=== PATIENT | female | born 1995 | race Caucasian/White ===

== ENCOUNTER → 2020-01-27 08:00 | Outpatient (BNVA) | payer MEDICAID, SELFPAY | PROVIDERS: Family Provider Nurse Practitioner Family; PCP Nurse Practitioner Family; Visit Provider Psychiatry & Neurology Psychiatry | DX: F43.10 Post-traumatic stress disorder, unspecified (principal); F34.9 Persistent mood [affective] disorder, unspecified; G47.26 Circadian rhythm sleep disorder, shift work type; D51.9 Vitamin B12 deficiency anemia, unspecified; F12.10 Cannabis abuse, uncomplicated; F39 Unspecified mood [affective] disorder; F33.9 Major depressive disorder, recurrent, unspecified; F60.9 Personality disorder, unspecified; F31.81 Bipolar II disorder | CPT/HCPCS: 99205 ==

== ENCOUNTER 2020-02-03 08:33 | Outpatient (CLI) | payer MEDICAID, SELFPAY ==
[2020-02-03 09:16] LABS: Basophils % 0.3 %; Eosinophils # 0.4 10^3/uL (0.0-0.8); Eosinophils % 3.1 %; Hematocrit 37.7 % (37.0-47.0); Lymphocytes # 3.6 10^3/uL (0.8-4.8); Lymphocytes % 31.8 %; Mean Corpuscular HGB Conc 31.8 g/dL (30.0-36.0); Mean Corpuscular Hemoglobin 27.8 pg (28.0-34.0); Mean Corpuscular Volume 87.5 fL (81-99); Mean Platelet Volume 10.2 fL (7.4-10.4); Monocytes # 1.1 10^3/uL (0.2-0.9); Neutrophils # 6.3 10^3/uL (1.8-7.7); Neutrophils % 54.5 %; Nucleated Red Blood Cells % 0 %; Platelet Count 396 10^3/cmm (130-400); Red Blood Count 4.31 10^6/uL (4.1-5.3); Red Cell Distribution Width 13.3 % (12.1-15.1); White Blood Count 11.5 10^3/uL (4.0-10.0)
[2020-02-03 09:23] LABS: Amphetamines Screen Urine Negative (Negative); Barbiturates Screen Urine Negative (Negative); Benzodiazepines Screen Urine Negative (Negative); Cocaine Screen Urine Negative (Negative); Opiate Screen Urine Negative (Negative); PCP Screen Urine Negative (Negative); THC Screen Urine Positive (Negative)
[2020-02-03 09:48] LABS: Folate Level 4.6 ng/mL (4.8-37.3)
[2020-02-03 09:50] LABS: Alanine Aminotransferase 37 U/L (0-33); Albumin Level 4.5 g/dL (3.5-5.2); Alkaline Phosphatase 93 IU/L (35-105); Anion Gap 13.9 (5-19); Aspartate Amino Transferase 23 U/L (0-32); Blood Urea Nitrogen 20 mg/dL (6-20); Calcium 10.1 mg/dL (8.5-10.5); Carbon Dioxide 24 mmol/L (22-29); Chloride 102 mmol/L (98-107); Chol HDL Ratio 4.21 mg/dL (0.0-4.40); Cholesterol 181 mg/dL (0-200); Glucose 93 mg/dL (65-115); HDL Cholesterol 43 mg/dL (60-100); LDL Cholesterol Calculated 120 mg/dL (50-129); LDL HDL Ratio 2.79 RATIO (0.00-3.22); Osmolality Calculated 278 mOsm/kg (285-295); Potassium 3.9 mmol/L (3.5-5.1); Sodium 136 mmol/L (136-145); Thyroid Stimulating Hormone 1.42 uIU/mL (0.27-4.20); Total Bilirubin 0.2 mg/dL (0.15-1.2); Total Protein 8.5 g/dL (6.6-8.7); Triglycerides 91 mg/dL (0-150); Vitamin B12 425 pg/mL (232-1245)
[2020-02-03 10:33] LABS: Free T4 Free Thyroxine 1.13 ng/dL (0.82-1.77); T3 Free 3.8 PG/ML (2.0-4.4)
[2020-02-03 10:48] LABS: 25 Hydroxy Vitamin D > 100 ng/mL (30-100)
[2020-02-04 08:15] LABS: T3 Total 157 ng/dL (76-181)
[2020-02-09 18:45] LABS: Copper Level 148 mcg/dL (70-175); Zinc Level, Serum or Plasma 78 mcg/dL (60-130)
== END 2020-02-03 08:34 | disposition home or self-care (01) ==
LOC: LAB 08:39
PROVIDERS: Family Provider Nurse Practitioner Family; PCP Nurse Practitioner Family; Visit Provider Psychiatry & Neurology Psychiatry
DX: D51.9 Vitamin B12 deficiency anemia, unspecified (principal); F12.10 Cannabis abuse, uncomplicated; F39 Unspecified mood [affective] disorder; F33.9 Major depressive disorder, recurrent, unspecified; R41.89 Other symptoms and signs involving cognitive functions and awareness; E55.9 Vitamin D deficiency, unspecified; E53.9 Vitamin B deficiency, unspecified; F41.9 Anxiety disorder, unspecified
CPT/HCPCS: 36415; 80053; 80061; 80306; 82306; 82525; 82607; 82746; 83735; 84439; 84443; 84480; 84481; 84630; 85025

== ENCOUNTER → 2020-03-13 07:45 | Outpatient (BNVA) | payer MEDICAID, SELFPAY | PROVIDERS: Family Provider Nurse Practitioner Family; PCP Nurse Practitioner Family; Visit Provider Psychiatry & Neurology Psychiatry | DX: F33.1 Major depressive disorder, recurrent, moderate (principal); F31.81 Bipolar II disorder; F32.81 Premenstrual dysphoric disorder; E53.8 Deficiency of other specified B group vitamins; G32.0 Subacute combined degeneration of spinal cord in diseases classified elsewhere; G47.26 Circadian rhythm sleep disorder, shift work type; F43.10 Post-traumatic stress disorder, unspecified; F34.9 Persistent mood [affective] disorder, unspecified | CPT/HCPCS: 99214 ==

== ENCOUNTER 2020-07-25 19:12 | Emergency (ER) | payer MEDICAID, SELFPAY ==
[2020-07-25 19:18] VITALS: BP 117/72; PULSE 119; RESP 16; TEMP 36.6; O2SAT 100; BMI 31.6
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
[2020-07-25 19:22] VITALS: BP 117/72; PULSE 114; RESP 18; TEMP 36.6; O2SAT 99
--- NOTE | 2020-07-25 19:31 | PC.NURSE ---
Pt arrives to ED with c/o L-ankle pain s/p fall yesterday. She sts she was running and her L-foot twisted, then she fell, landing on top of her ankle. 2+ Swelling noted, pt rates her pain 5/10.
--- NOTE | 2020-07-25 19:49 | W.ED.EXTPRO ---
HPI - Extremity Problem General: Chief complaint: Extremity Injury, Lower Stated complaint: left ankle injury Time Seen by Provider: 07/25/20 19:25 History of Present Illness: HPI Narrative: Twisted left ankle while running last night continues to hurt. MD Complaint: joint swelling and joint pain Onset (ago): day(s) Pain Consistency: constant Location: left and lower extremity Severity scale (1-10): 3 Quality: aching Relieving factors: immobilization and rest Exacerbating factors: range of motion and weight bearing Associated symptoms: Reports no associated symptoms; Deny chest pain, fever(s) or rash Review of Systems Const: Denies: fever(s), chills or body aches Eyes: Denies: change in vision or blurry vision ENMT: Denies: throat pain or nasal congestion Card: Denies: chest pain or dyspnea on exertion Resp: Denies: dyspnea, productive cough or non-productive cough GI: Denies: abdominal pain, nausea or vomiting Musc: Reports: joint pain (Left ankle after twisting it last night) and limited range of motion; Denies: extremity pain Skin/Breast: Denies: rash Neuro: Denies: headache(s) Psych: Denies: anxiety or depression Morgan/Lymph: Denies: easy bruising PFSH ED PFSH: Social History Current gender identity: Female Female Reproductive History: Date of last menstrual period: 07/25/20 Physical Exam Const: COMMON NORMALS: no acute distress Extremity: LEFT LOWER EXTREMITY: Yes ankle joint (Lateral malleus tenderness mild swelling medial malleus okay midfoot spine is able to bear some weight. Range of motion decreased due to pain.) Psych: COMMON NORMALS: mental status grossly normal Course Vital Signs: Vital signs: Vital Signs Temperature 97.8 F 07/25/20 19:22 Pulse Rate 114 H 07/25/20 19:22 Respiratory Rate 18 07/25/20 19:22 Blood Pressure 117/72 07/25/20 19:22 Pulse Oximetry 99 07/25/20 19:22 MDM - Extremity (Nontraumatic) Imaging Data^: Xray Ortho: My impression: Negative Discharge Plan Discharge Patient Disposition: Home Clinical Impression: Ankle sprain and strain Condition: Stable Prescriptions: No Action lamotrigine [Lamictal] 100 mg tablet 150 mg PO DAILY 30 Days Qty: 30 RF: 2 folic acid-vit B6-vit B12 2.2-25-1.3 mg tablet 1 tab PO QDAY Qty: 30 RF: 2 lamotrigine [Lamictal ODT Starter ([place])] 25 mg(14)-50 mg (14)-100 mg (7) tablet disintegrating, dose pk See Rx Instructions PO PER PKG DIR Qty: 35 RF: 0 lamotrigine [Lamictal] 25 mg tablet 25 mg PO .COMPLEX Qty: 120 RF: 0 levomefolate calcium [L-Methylfolate] 15 mg tablet 15 mg PO DAILY Qty: 30 RF: 2 folic acid 1 mg tablet 1 mg PO DAILY Qty: 30 RF: 0 Discharge Orders: Discharge Order (Routine); Ordered 07/25/20 Ordered By: Jayson De La Cruz Referrals: JAVIER Pinzon, DIESEL MAINTENANCE TECHNICIAN [Primary Care Provider] - Discharge Diet: Usual diet Discharge Activity: Increase activity as tolerated Patient Instructions: Ankle Sprain (ED) Activity Restrictions/Additional Instructions: Ice elevate try to ambulate as much possible. follow-up with your family medical provider if no significant provement. Discharge Date/Time: 07/25/20 19:53 Coding Level of Care Code ED Extension Professor for Chg Fwd Exam Expanded Problem Focused
== END 2020-07-25 19:53 | disposition home or self-care (01) ==
PROVIDERS: Emergency Provider Nurse Practitioner Family; PCP Nurse Practitioner Family
DX: S93.402A Sprain of unspecified ligament of left ankle, initial encounter (principal); S96.912A Strain of unspecified muscle and tendon at ankle and foot level, left foot, initial encounter; X50.1XXA Overexertion from prolonged static or awkward postures, initial encounter
CPT/HCPCS: 12345; 73610; 99281; 99282

== ENCOUNTER → 2020-10-19 08:14 | Outpatient (BNVA) | payer MEDICAID, SELFPAY | PROVIDERS: PCP Nurse Practitioner Family; Visit Provider Nurse Practitioner Psychiatric/Mental Health | DX: F43.10 Post-traumatic stress disorder, unspecified (principal); F34.9 Persistent mood [affective] disorder, unspecified; F33.9 Major depressive disorder, recurrent, unspecified | CPT/HCPCS: 99214 ==

== ENCOUNTER 2020-10-26 14:21 | Emergency (ER) | payer MEDICAID, SELFPAY ==
[2020-10-26 14:31] VITALS: BP 136/79; PULSE 79; RESP 18; TEMP 36.6; O2SAT 100; BMI 29.9
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
[2020-10-26 16:19] VITALS: BP 101/46; PULSE 76; RESP 16; O2SAT 100
[2020-10-26 16:20] VITALS: BP 101/46; PULSE 70; RESP 16; O2SAT 100
== END 2020-10-26 16:22 | disposition home or self-care (01) ==
PROVIDERS: Emergency Provider Physician Assistant; PCP Nurse Practitioner Family
DX: S16.1XXA Strain of muscle, fascia and tendon at neck level, initial encounter (principal); F17.210 Nicotine dependence, cigarettes, uncomplicated; V57.5XXA Driver of pick-up truck or van injured in collision with fixed or stationary object in traffic accident, initial encounter
CPT/HCPCS: 12345; 70450; 72125; 72128; 99281; 99283

== ENCOUNTER → 2020-11-16 07:30 | Outpatient (BNVA) | payer MEDICAID, SELFPAY | PROVIDERS: PCP Nurse Practitioner Family; Visit Provider Nurse Practitioner Psychiatric/Mental Health | DX: F43.10 Post-traumatic stress disorder, unspecified (principal); F34.9 Persistent mood [affective] disorder, unspecified; F33.9 Major depressive disorder, recurrent, unspecified | CPT/HCPCS: 99213 ==

== ENCOUNTER → 2020-11-17 08:23 | Outpatient (BNVA) | payer MEDICAID, SELFPAY | PROVIDERS: PCP Nurse Practitioner Family; Visit Provider Counselor Professional | DX: F33.9 Major depressive disorder, recurrent, unspecified (principal); F43.10 Post-traumatic stress disorder, unspecified | CPT/HCPCS: 90834 ==

== ENCOUNTER → 2020-12-01 09:03 | Outpatient (BNVA) | payer MEDICAID, SELFPAY | PROVIDERS: PCP Nurse Practitioner Family; Visit Provider Counselor Professional | DX: F33.9 Major depressive disorder, recurrent, unspecified (principal) | CPT/HCPCS: 90834 ==

== ENCOUNTER → 2020-12-14 08:00 | Outpatient (BNVA) | payer MEDICAID, SELFPAY | PROVIDERS: PCP Nurse Practitioner Family; Visit Provider Nurse Practitioner Psychiatric/Mental Health | DX: F43.10 Post-traumatic stress disorder, unspecified (principal); F34.9 Persistent mood [affective] disorder, unspecified; F33.9 Major depressive disorder, recurrent, unspecified | CPT/HCPCS: 99213 ==

== ENCOUNTER → 2020-12-22 09:09 | Outpatient (BNVA) | payer MEDICAID, SELFPAY | PROVIDERS: PCP Nurse Practitioner Family; Visit Provider Counselor Professional | DX: F43.12 Post-traumatic stress disorder, chronic (principal); F34.9 Persistent mood [affective] disorder, unspecified; F33.9 Major depressive disorder, recurrent, unspecified | CPT/HCPCS: 90832 ==

== ENCOUNTER 2021-03-16 16:05 | Outpatient (CLI) | payer MEDICAID, SELFPAY ==
[2021-03-16 16:22] VITALS: TEMP 36.1
[2021-03-16 16:23] VITALS: BP 111/55; PULSE 100
[2021-03-16 16:24] VITALS: RESP 16
[2021-03-16 16:25] VITALS: BMI 30.6
== END 2021-03-16 16:40 | disposition home or self-care (01) ==
LOC: OPOB 16:13 → OBGYN 16:13
PROVIDERS: PCP Nurse Practitioner Family; Visit Provider Family Medicine
DX: O26.899 Other specified pregnancy related conditions, unspecified trimester (principal); Z3A.00 Weeks of gestation of pregnancy not specified; R42 Dizziness and giddiness
CPT/HCPCS: 99211

== ENCOUNTER 2021-03-18 18:30 | Outpatient (CLI) | payer MEDICAID, SELFPAY ==
[2021-03-18 18:30] VITALS: BMI 30.4
[2021-03-18 18:43] VITALS: TEMP 36.8
[2021-03-18 18:45] VITALS: BP 112/64; PULSE 108
[2021-03-18 19:00] VITALS: BP 112/64; PULSE 108; RESP 20; TEMP 36.8; O2SAT 97
== END 2021-03-18 19:00 ==
LOC: OPOB 18:36 → OBGYN 18:37
PROVIDERS: PCP Nurse Practitioner Family; Visit Provider Family Medicine
DX: O26.899 Other specified pregnancy related conditions, unspecified trimester (principal); Z3A.00 Weeks of gestation of pregnancy not specified; R05 Cough; R09.81 Nasal congestion
CPT/HCPCS: 99211

== ENCOUNTER 2021-03-18 19:04 | Emergency (ER) | payer MEDICAID, SELFPAY ==
[2021-03-18 19:09] VITALS: BP 113/69; PULSE 104; RESP 20; TEMP 37.2; O2SAT 97; BMI 30.7
[2021-03-18 19:20] VITALS: BP 113/69; PULSE 115; RESP 17; O2SAT 97
--- NOTE | 2021-03-18 19:29 | XRR_ITS ---
PROCEDURE INFORMATION: Exam: XR Chest Exam date and time: 03/18/2021 7:29 PM Age: 25 years old Clinical indication: Cough and dyspnea; Additional info: Cough SOB TECHNIQUE: Imaging protocol: XR of the chest. Views: 2 views. COMPARISON: CR Chest 2 views* [id number] 10/31/2018 9:51 PM FINDINGS: Lungs: Unremarkable. No consolidation. Pleural spaces: Unremarkable. No pleural effusion. No pneumothorax. Heart/Mediastinum: Unremarkable. No cardiomegaly. Bones/joints: Unremarkable. XR/XR chest 2V* [id number] IMPRESSION: No acute findings.
--- NOTE | 2021-03-18 19:29 | ECG_ITS ---
[facility] Test Date: 2021-03-18 Pat Name: Katia Marin Department: Room: Gender: Female Evp: : 1995 Requested By: Mannie Patel Order Number: [id number] Rajat MD: Frank Gloria M.D. Measurements Intervals Lamar Rate: 104 P: 36 SD: 156 QRS: 41 QRSD: 95 T: 17 QT: 336 QTc: 443 Interpretive Statements SINUS TACHYCARDIA POSSIBLE LEFT ATRIAL ENLARGEMENT [-0.1mV P WAVE IN V1/V2] ABNORMAL RHYTHM ECG No previous ECG available for comparison Electronically Signed On 03-19-2021 18:46:42 CDT by Frank Gloria M.D. [email or web address]
--- NOTE | 2021-03-18 19:31 | ED_ITS ---
HPI - URI/Sore Throat General: Chief Complaint: Upper Respiratory Infection Stated Complaint: cough, congestion Time Seen by Provider: 03/18/21 19:14 History of Present Illness: HPI Narrative: 25-year-old female who is 22 weeks . She presents with a cough, low-grade temperatures, posttussive emesis, and chest pain related to her cough for the last 3 days. She has a sick son at home with similar symptoms. Evidently he tested negative for Covid. She has had chills as well. She was sent to OB first, and exam performed on fetus, which was normal. MD elicited complaint: fever, cough, sore throat and nasal congestion Pertinent past history: other Onset (ago): day(s) Consistency: constant and progressively worsening Severity: moderate Description of mucous: clear Able to tolerate fluids by mouth: Yes Exacerbating factors: exertion, deep breaths and supine positioning Relieving factors: nothing Context: sick contacts Associated symptoms: Reports chest pain, congestion, cough, fever(s), headache(s), myalgias, nasal congestion, nausea, rhinorrhea and short of breath; Deny abdominal pain or diarrhea Treatments prior to arrival: acetaminophen Review of Systems Const: Reports: fever(s) Eyes: Denies: change in vision ENMT: Reports: nasal congestion Card: Reports: chest pain Resp: Reports: dyspnea, non-productive cough and wheezing GI: Reports: nausea; Denies: abdominal pain or diarrhea : Denies: dysuria or hematuria Musc: Reports: back pain; Denies: neck pain Skin/Breast: Denies: rash or erythema Neuro: Reports: headache(s) Psych: Denies: anxiety PFSH ED PFSH: Social History (Updated 10/19/20 @ 08:34 by Miguelina Marsh LPN) Smoking and tobacco status: current every day smoker cigarettes Years cigarettes smoked: 10 Quit status (tobacco): considering quitting Second hand smoke exposure: Yes Current gender identity: Female Female Reproductive History: Date of last menstrual period: 10/16/20 Physical Exam Const: GENERAL APPEARANCE: cooperative, well developed and ill appearing ORIENTATION/CONSCIOUSNESS: Yes oriented to person, Yes oriented to place and Yes oriented to time HENMT: COMMON NORMALS: normocephalic, external ears normal and Normal external nose present HEAD & SCALP: normocephalic FACE & SINUS: normal facial exam NOSE: Normal external nose present and No nasal discharge present EXTERNAL EAR: Yes external ears normal Eye: COMMON NORMALS: Equal, round and reactive pupils present, EOMs intact bilaterally and conjunctivae normal EYELID: eyelids normal CONJUNCTIVA: Yes conjunctivae normal PUPIL: Yes Equal, round and reactive pupils present Neck/C-Spine: GENERAL: No tracheal deviation Chest: COMMONS NORMALS: normal inspection of the chest CHEST: No tenderness Resp: COMMON NORMALS: clear to auscultation bilaterally EFFORT & INSPECTION: No tachypneic, No respiratory distress, No retractions, No uses accessory muscles and No tracheal deviation AUSCULTATION: clear to auscultation bilaterally, no rhonchi, no wheezes and lung sounds not diminished Cardio: COMMON NORMALS: regular rate and regular rhythm RATE: regular rate RHYTHM: regular rhythm HEART SOUNDS: no murmurs PERIPHERAL PULSES: radial pulses present GI: INSPECTION: No abdominal distension AUSCULTATION: No Hyperactive bowel sounds present and No Hypoactive bowel sounds present PALPATION: No Guarding due to palpation present (GI) and No Rigid due to palpation PERCUSSION: no dullness to percussion and no tympanic to percussion Neuro: SENSORIUM/ORIENTATION: Yes oriented to person, Yes oriented to place and Yes oriented to time Psych: COMMON NORMALS: mental status grossly normal Skin: COMMON NORMALS: no rashes or lesions noted GENERAL SKIN EXAM: no rashes or lesions noted Course Vital Signs: Vital signs: Vital Signs Temperature 99.0 F 03/18/21 19:09 Pulse Rate 87 03/18/21 21:26 Respiratory Rate 18 03/18/21 21:26 Blood Pressure 104/55 03/18/21 21:26 Pulse Oximetry 97 03/18/21 21:26 MDM - URI/Sore Throat MDM Narrative: Medical decision making narrative: Chest x-ray is negative. She feels much improved after Percocet and dexamethasone as well as a liter of IV fluid. Her vitals are normal. She is not hypoxic. Her heart rate is 76. She will be allowed home. She will be covered since she is . Lab Data: Labs: Lab Results 03/18/21 Range/Units 19:50 SARS-CoV-2 Ag (Rap id) Negative (Negative) Discharge Plan Discharge Patient Disposition: Home Clinical Impression: Bronchitis Condition: Stable Prescriptions: New Zithromax 250 mg tablet See Rx Instructions .ROUTE .COMPLEX Qty: 6 RF: 0 codeine-guaifenesin 10-200 mg/5 mL liquid 5 ml PO Q6H PRN (Reason: cough) Qty: 100 RF: 0 No Action prenat.vits,alexander,[id number] Tablet 1 tab PO DAILY RF: 0 acetaminophen [Tylenol Extra Strength] 500 mg Tablet 500 mg PO Q6H PRN (Reason: pain/fever) RF: 0 albuterol sulfate [ProAir HFA] 90 mcg/actuation HFA aerosol inhaler 1 puff INHALATION Q4H PRN (Reason: Shortness Of Breath) RF: 0 Discharge Orders: Discharge ED (Routine); Ordered 03/18/21 Ordered By: Mannie Andersen Referrals: JAVIER Pinzon, MANAGER SAFE [Primary Care Provider] - 4-7 days Discharge Diet: Usual diet Discharge Activity: Increase activity as tolerated Patient Instructions: Acute Bronchitis (ED), Opioid Safety Activity Restrictions/Additional Instructions: Return for worsening pain despite treatment, worsening shortness of breath despite treatment, inability to control fever, any other concerning symptoms. Coding Level of Care Code ED Cnc Operator Programmer for Ryan Fwd Exam Comprehensive
[2021-03-18] MEDS: oxyCODONE-APAP 5-325 mg Tablet 2 TAB PO (19:55)
[2021-03-18] MEDS: dexamethasone 4 mg Tablet 10 MG PO (19:55)
[2021-03-18] MEDS: ondansetron 2 mg/ML SDV 2 mL 4 MG IVP (19:56)
[2021-03-18] MEDS: sodium chloride 0.9% 1,000 ML 999 ML IV (19:56)
[2021-03-18 20:23] LABS: SARS Covid-2 Antigen Negative (Negative)
[2021-03-18 20:43] VITALS: BP 108/63; PULSE 100; RESP 15; O2SAT 97
[2021-03-18 21:26] VITALS: BP 104/55; PULSE 87; RESP 18; O2SAT 97
[2021-03-18] MEDS: azithromycin 250 mg Tablet 500 MG PO (21:27)
== END 2021-03-18 21:30 | disposition home or self-care (01) ==
PROVIDERS: Emergency Provider Emergency Medicine; PCP Nurse Practitioner Family
DX: J40 Bronchitis, not specified as acute or chronic (principal); F17.210 Nicotine dependence, cigarettes, uncomplicated
CPT/HCPCS: 71046; 87426; 93005; 96361; 96374; 99284; J2405; J7030; J8540; Q0144

== ENCOUNTER 2021-06-24 12:45 | Outpatient (CLI) | payer MEDICAID, SELFPAY ==
[2021-06-24] VITALS (14 sets, daily range): BP systolic 108–122; BP diastolic 57–73; PULSE 77–129; RESP 16; TEMP 36.5–36.6; BMI 31.2
== END 2021-06-24 16:53 | disposition home or self-care (01) ==
LOC: OPOB 12:54 → OBGYN 12:55
PROVIDERS: PCP Nurse Practitioner Family; Visit Provider Family Medicine
DX: O26.899 Other specified pregnancy related conditions, unspecified trimester (principal); Z3A.00 Weeks of gestation of pregnancy not specified
CPT/HCPCS: 59025; 99211

== ENCOUNTER 2021-06-24 21:11 | Inpatient (IN) | payer MEDICAID, SELFPAY ==
[2021-06-24] VITALS (37 sets, daily range): BP systolic 101–141; BP diastolic 55–85; PULSE 74–117; RESP 16; TEMP 36.2; O2SAT 92–100; BMI 31.2
[2021-06-24] MEDS: lactated ringers 1,000 ML 999 ML IV (21:42)
[2021-06-24] MEDS: fentaNYL 50 mcg/mL INJ 2mL IVP ×2 (21:53→22:30)
[2021-06-24 21:54] LABS: Basophils # 0.1 10^3/uL (0.0-0.1); Basophils % 0.2 %; Eosinophils # 0.1 10^3/uL (0.0-0.8); Eosinophils % 0.6 %; Hematocrit 33.2 % (37.0-47.0); Hemoglobin 11.3 g/dL (11.5-15.3); Lymphocytes # 2.9 10^3/uL (0.8-4.8); Lymphocytes % 14.5 %; Mean Corpuscular Hemoglobin 30.3 pg (28.0-34.0); Mean Platelet Volume 9.9 fL (7.4-10.4); Monocytes # 1.7 10^3/uL (0.2-0.9); Monocytes % 8.5 %; Neutrophils # 15.17 10^3/uL (1.8-7.7); Neutrophils % 75.7 %; Nucleated Red Blood Cells % 0 %; Platelet Count 399 10^3/cmm (130-400); Red Blood Count 3.73 10^6/uL (4.1-5.3); Red Cell Distribution Width 12.7 % (12.1-15.1)
[2021-06-24 22:29] LABS: Amphetamines Screen Urine Negative (Negative); Barbiturates Screen Urine Negative (Negative); Benzodiazepines Screen Urine Negative (Negative); Cocaine Screen Urine Negative (Negative); Opiate Screen Urine Negative (Negative); PCP Screen Urine Negative (Negative); THC Screen Urine Negative (Negative)
--- NOTE | 2021-06-24 22:57 | P.ANESASSM_ITS ---
Pre-Anesthetic Assessment Pre-Anesthetic Assessment: Height/Weight: Height 1.65 m Weight 85.275 kg Temp Pulse Resp BP Pulse Ox 97.2 F L 91 16 135/72 100 06/24/21 21:59 06/24/21 22:55 06/24/21 21:53 06/24/21 22:55 06/24/21 22:54 Preop Diagnosis: Active Labor Familial anesthetic complications: none Was Beta Osmin taken within 24 hours: N/A Was Clonidine taken within 24 hours: N/A Last intake: meal 1100 Social: Social History: Tobacco and No alcohol Exam: Pre-Anes Outpt Exam: alert, oriented x 3 and clear to auscultation bilaterally Airway: Submandibular: WNL Cervical ROM: WNL MP: 2 Dentition: Full History/ROS: No significant history except as noted Pulmonary: Pulmonary: Asthma CV/HEM: CV/HEM: None reported : : None reported Hepatic: Hepatic: None reported GI: GI: None reported Metabolic: Metabolic: None reported Musc/skel: Comments: chronic pain Neuropsych: Neuropsych: Anxiety and Depression Meds/Allergies Current Medications: Current Medications Generic Name Dose Route Start Last Admin Trade Name Freq PRN Reason Stop Dose Admin Fentanyl 25 - 100 mcg 06/24/21 21:16 06/24/21 22:30 Fentanyl 50 Mcg/ Ml Inj 2ml IVP 50 mcg Q1H PRN Administration SEVERE PAIN Vancomycin HCl 1,7 00 mg/ 500 mls @ 250 mls /hr 06/24/21 21:30 06/24/21 21:51 Sodium Chloride IV 250 mls/hr Q8H JOSAFAT Administration Lactated Ringer's 1,000 mls @ 999 m ls/hr 06/24/21 21:09 06/24/21 21:42 Lactated Ringers IV 999 mls/hr .Q1H1M PRN Administration See label comment s PFSH Anesthesia PFSH: Social History (Updated 10/19/20 @ 08:34 by Miguelina Heaton LPN) Smoking and tobacco status: current every day smoker cigarettes Years c igarettes smoked: 10 Quit status (tobacco): considering quitting Second hand smoke exposure: Yes Current gender identity: Female Female Reproductive History: Date of last menstrual period: 10/16/20 : 3 Data Anesthesia CBC & Chem 7: 06/24/21 21:22 Other Labs: Laboratory Results - last 48 hr 06/24/21 06/24/21 21:22 21:22 WBC 20.0 H RBC 3.73 L Hgb 11.3 L Hct 33.2 L MCV 89.0 MCH 30.3 MCHC 34.0 RDW 12.7 Plt Count 399 MPV 9.9 Neut % (Auto) 75.7 Lymph % (Auto) 14.5 [place] % (Auto) 8.5 Eos % (Auto) 0.6 Baso % (Auto) 0.2 Neut # (Auto) 15.17 H Lymph # (Auto) 2.9 [place] # (Auto) 1.7 H Eos # (Auto) 0.1 Baso # (Auto) 0.1 Nucleated RBC % (auto) 0 Nucleated RBCs # 0.0 Urine Opiates Screen Negative Ur Barbiturates Screen Negative Ur Phencyclidine Scrn Negative Ur Amphetamines Screen Negative U Benzodiazepines Scrn Negative Urine Cocaine Screen Negative U Marijuana (THC) Screen Negative Cardiac Studies: No Data to Display
--- NOTE | 2021-06-24 23:06 | ANES.PROC ---
Anesthesia Procedures Procedure/Date: 06/24/21 Epidural: Time Out Performed: Yes Consents Signed: Procedure Consent Consent: requested by attending/covering physician and from patient Lumbar Level: L3-L4 Epidural position: sitting Epidural procedure: sterile prep of area, 1% lidocaine to numb the area, negative for paresthesia passed, neg for paresthesia, test dose given, 1.5% xylocaine 1:200k epi, placed PCEA, no systemic response, sterile dressing applied, L.U.D. no apparent complications and 0.2% Ropiavacaine @ mls/hr (13ml/hr) Additional Comments: STUART at 7 cm catheter threaded to 13 cm 100 mcg of fentanyl given via epidural.
[2021-06-24] MEDS: dextrose 5%-lactated ringers 1,000 ML 125 ML IV (23:38)
[2021-06-25] VITALS (30 sets, daily range): BP systolic 95–121; BP diastolic 49–67; PULSE 73–114; RESP 16–18; TEMP 35.6–37.3; O2SAT 99
--- NOTE | 2021-06-25 01:05 | PM.OPHPUD ---
Labor & Delivery H&P Update Date of Procedure: June 25, 2021 Date H&P Performed: 06/22/21 H&P update information: I have reviewed H&P completed within last 30 days and I have examined patient prior to procedure Changes to previous documentation: Cervix is 9 cm and 95% effaced when I checked her. Admission Diagnosis: 25-year-old 3 para 1-0-1-1 with estimated gestational age of 36 weeks and 4 days presenting in active labor Preop diagnosis: Active Labor Planned procedure: Spontaneous vaginal delivery Related Problem List Diagnoses (1) 36 weeks gestation of :
--- NOTE | 2021-06-25 01:35 | P.PCNOB_ITS ---
Delivery Note: Date of delivery: June 25, 2021 Pre-delivery diagnoses: 25-year-old 3 para 1-0-1-1 at 36 weeks and 4 days presenting to the hospital in active labor Post-delivery diagnoses: Status post spontaneous vaginal delivery Procedure: Spontaneous vaginal delivery Op report anesthesia: Epidural Delivering Physician: Obinna Adamson Estimated blood loss (mL): 150 Pre-Delivery Course: The patient presented to the hospital in active labor. Her GBS status was unknown. She was started on vancomycin. An epidural was placed. She had spontaneous rupture of membranes during a check. She then pro gressed to complete without difficulty. The patient's was remarkable for being marijuana positive. She is also positive on her 1 hour glucose screen. Her 3-hour screen was negative. Her GBS status was checked but is currently unknown. Her Covid status is unknown. She is rubella immune. Her blood type is O+. Her antibody screen is negative the remainder of her labs are within normal limits. Delivery: DELIVERY: The patient progressed to complete without difficulty. She delivered a female with a weight of 6 pounds 2 ounces with Apgars of 9, 9. The baby was delivered from the BEBO position and placed on the mother's abdomen. The cord was then clamped and cut. There was no nuchal cord. There was no meconium. There was bloody amniotic fluid. The placenta and 3 vessel cord were delivered intact shortly thereafter. No obvious sign of abruption was noted. The perineum and vaginal vault were carefully examined. No lacerations were noted. Both the mother and the baby were in stable condition. Post-Delivery Status: Good A&P Assessment and plan (1) 36 weeks gestation of : I anticipate routine care. the patient was positive for marijuana multiple times during her . We will check her urine for marijuana. She will require a 2 night stay in the hospital to be with her child who is GBS unknown with inadequate antibiotic coverage. Status: Acute (2) Spontaneous vaginal delivery: Status: Acute Coding Level of Care Code Acute Domestic Housekeeper for Chg Fwd Diagnoses 36 weeks gestation of Z3A.36 Spontaneous vaginal delivery O80
[2021-06-25] MEDS: HYDROcodone-acetaminophen 5-325 mg Tablet PO ×2 (07:18→16:59)
[2021-06-25] MEDS: docusate sodium 100 mg Capsule PO ×2 (10:37→16:59)
[2021-06-25] MEDS: prenatal vitamin Capsule 1 CAP PO (10:37)
[2021-06-25] MEDS: ibuprofen 800 mg tablet PO ×3 (10:38→20:26)
--- NOTE | 2021-06-25 14:53 | PC.RESP ---
SMOKING CESSATION INFORMATION SENT TO PATIENT.
[2021-06-25 17:05] LABS: Hematocrit 31.2 % (37.0-47.0); Hemoglobin 10.3 g/dL (11.5-15.3); Mean Corpuscular Hemoglobin 30.1 pg (28.0-34.0); Mean Corpuscular Volume 91.2 fl (81-99); Mean Platelet Volume 9.7 fL (7.4-10.4); Platelet Count 343 10^3/cmm (130-400); Red Blood Count 3.42 10^6/uL (4.1-5.3); Red Cell Distribution Width 12.9 % (12.1-15.1); White Blood Count 16.6 10^3/uL (4.0-10.0)
[2021-06-26] MEDS: HYDROcodone-acetaminophen 5-325 mg Tablet PO (00:18)
[2021-06-26 03:00] VITALS: RESP 17
[2021-06-26 04:50] VITALS: TEMP 36
[2021-06-26 04:51] VITALS: BP 96/52; PULSE 68
--- NOTE | 2021-06-26 07:08 | ANE.PACU2 ---
Inpatient post-anesthesia follow up: Airway intact: Yes Vital signs: Temperature 96.3 F Pulse Rate 86 Respiratory Rate 16 Blood Pressure 118/74 Pulse Oximetry 99 Oxygen Delivery Me thod Room Air Oxygen Flow Rate Fraction of Inspir ed Oxygen Hydration adequate: Yes Nausea and vomiting: No Pain level: 2 Mental status: Baseline
--- NOTE | 2021-06-26 08:09 | PM.OBGYDC ---
Discharge Providers BEHAVIORAL HEALTH CLINICIAN Date of Admission: 06/24/21 21:11 Date of Discharge: 06/26/21 Attending Provider at Admission: Obinna Adamson MD Attending Provider at Discharge: Obinna Adamson MD Primary Care Provider: CYNTHIA Doshi Diagnoses at Discharge Discharge Diagnosis (1) 36 weeks gestation of : Status: Resolved Reason for Visit Reason for Visit: contractions Hospital Course Hospital Course The patient arrived to the hospital at 36 weeks and 4 days in active labor. She progressed to complete and had a unremarkable delivery of a healthy-appearing female . Her course was unremarkable. Her bleeding was within normal limits. She breast-fed well. Her pain was well controlled. Information Peripartum Data: Infant Delivery Method: Vaginal Physical Exam Narrative: EXAM NARRATIVE: The patient is alert. She appears comfortable. Her heart has a regular rate and rhythm with no murmurs appreciated. Lungs are clear to auscultation bilaterally. Her fundus is firm and below the umbilicus. Urinary Catheter Management^: Mendez: Cath Placed During This Visit: yes Urinary Catheter Date of Insertion: 06/24/21 Urinary Catheter Time of Insertion: 23:42 Discharge Data Data Completed and Pending: Labs from last 24 hours 06/25/21 16:50 WBC 16.6 H RBC 3.42 L Hgb 10.3 L Hct 31.2 L MCV 91.2 MCH 30.1 MCHC 33.0 RDW 12.9 Plt Count 343 MPV 9.7 Vitals: Last Vital Signs Temp 96.8 F L 06/26/21 04:50 Pulse 68 06/26/21 04:51 Resp 17 06/26/21 03:00 BP 96/52 06/26/21 04:51 Pulse Ox 99 06/25/21 22:41 Discharge Plan Discharge Patient Disposition: Home Condition: Stable Prescriptions: New ibuprofen 800 mg Tablet 800 mg PO TID Qty: 45 RF: 0 Continued prenat.vits,alexander,[id number]-qjloy Tablet 1 tab PO DAILY RF: 0 acetaminophen [Tylenol Extra Strength] 500 mg Tablet 500 mg PO Q6H PRN (Reason: pain/fever) RF: 0 Discontinued albuterol sulfate [ProAir HFA] 90 mcg/actuation HFA aerosol inhaler 1 puff INHALATION Q4H PRN (Reason: Shortness Of Breath) RF: 0 ondansetron HCl [Zofran] 4 mg Tablet 4 mg PO Q6H RF: 0 azithromycin [Zithromax] 250 mg tablet See Rx Instructions .ROUTE .COMPLEX Qty: 6 RF: 0 codeine-guaifenesin 10-200 mg/5 mL liquid 5 ml PO Q6H PRN (Reason: cough) Qty: 100 RF: 0 Discharge Orders: Discharge Order (Routine); Ordered 06/26/21 Ordered By: Obinna Adamson Referrals: Obinna Adamson MD [Physician] - 08/07/21 10:15 am Discharge Diet: Usual diet Discharge Activity: Limit activity as instructed Patient Instructions: Depression (GEN), Preeclampsia During (DC), Bleeding (DC), OB Discharge Report, OB Food/Drug Interaction Guide, Opioid Safety, OB Home Care, OB Proud Parent Packet, OB Vaginal Deliveries Discharge Attestations BEHAVIORAL HEALTH CLINICIAN Time Spent in Discharge Care*: less than 30 min Coding Level of Care Code Acute Plumber Pipe Fitting for Chg Fwd Diagnoses 36 weeks gestation of Z3A.36
[2021-06-26] MEDS: ibuprofen 800 mg tablet PO (09:30)
[2021-06-26] MEDS: docusate sodium 100 mg Capsule PO (09:30)
[2021-06-26] MEDS: prenatal vitamin Capsule 1 CAP PO (09:31)
[2021-06-26 11:30] VITALS: BP 119/76; PULSE 72; RESP 16; TEMP 35.7
[2021-06-26 11:37] VITALS: BP 118/74; PULSE 86
[2021-06-26 11:38] VITALS: TEMP 35.7
== END 2021-06-26 11:46 | disposition home or self-care (01) | DRG 806 ==
LOC: OPOB 06-25 06:49 → OBGYN 06-25 06:50
PROVIDERS: Admitting Provider Family Medicine; PCP Nurse Practitioner Family; Visit Provider Family Medicine
DX: O60.14X0 Preterm labor third trimester with preterm delivery third trimester, not applicable or unspecified (principal); O99.324 Drug use complicating childbirth; Z37.0 Single live birth; F12.90 Cannabis use, unspecified, uncomplicated; Z3A.36 36 weeks gestation of pregnancy; O99.334 Smoking (tobacco) complicating childbirth; F17.210 Nicotine dependence, cigarettes, uncomplicated; O99.52 Diseases of the respiratory system complicating childbirth; J45.909 Unspecified asthma, uncomplicated
CPT/HCPCS: 12345; 36415; 51702; 59025; 59409; 80306; 85025; 85027; 96374; 96376; 98960; 99211; J2370; J2795; J3010; J3370; J7040

== ENCOUNTER 2022-07-22 09:44 | Emergency (ER) | payer MEDICAID, SELFPAY ==
[2022-07-22 10:16] VITALS: BP 106/63; PULSE 85; RESP 14; O2SAT 100; BMI 28.3
--- NOTE | 2022-07-22 10:37 | ED_ITS ---
HPI - Back Pain/Injury General: Chief Complaint: Back Pain/Injury Stated Complaint: Back pain Time Seen by Provider: 07/22/22 10:22 History of Present Illness: Patient is a 26-year-old female comes to the ED with lower back pain. Patient has symptoms started approximately 4 days ago after she was lifting some heavy furniture and was not using good lifting technique. Her pain is in her lower back and she gets some stinging type pain that radiates down her right leg. Low back pain has continued and she also has some stiffness in her lower back as well. She rates her pain a 7 out of 10. She has been taking ibuprofen and Tylenol to help with symptoms. She is also seen the chiropractor since injury and has been applying cold packs on back to help with symptoms as well. Denies any bladder or bowel incontinence, pelvic anesthesia or any weakness to lower extremities. Associated symptoms: Deny abdominal pain, chills, dysuria, fatigue, fever(s), hematuria, nausea or vomiting Review of Systems Const: Denies: fever(s), chills or fatigue Eyes: Denies: change in vision or eye discomfort ENMT: Denies: throat pain, odynophagia, nasal discharge or nasal congestion Card: Denies: chest pain, palpitations, edema, swelling of feet/ankles, dyspnea on exertion or orthopnea Resp: Denies: dyspnea, productive cough or non-productive cough GI: Denies: abdominal pain, nausea, vomiting, diarrhea, constipation or hematochezia : Denies: flank pain, dysuria or hematuria Musc: Reports: back pain; Denies: neck pain or extremity swelling Skin/Breast: Denies: rash or new lesions Neuro: Denies: headache(s), numbness in extremities or weakness in extremities PFS ED PFSH: Medical History (Updated 07/23/22 @ 07:35 by JASMINE Whittaker) No pertinent family history Surgical History (Updated 07/23/22 @ 07:35 by JASMINE Whittaker) No pertinent past surgical history Social History (Updated 10/19/20 @ 08:34 by Miguelina Heaton LPN) Smoking and tobacco status: current every day smoker cigarettes Years cigarettes smoked: 10 Quit status (tobacco): considering quitting Second hand smoke exposure: Yes Current gender identity: Female Female Reproductive History: Date of last menstrual period: 10/16/20 Physical Exam Const: COMMON NORMALS: no acute distress, patient oriented x3, healthy appearing and alert GENERAL APPEARANCE: cooperative HENMT: COMMON NORMALS: normocephalic HEAD & SCALP: normocephalic MOUTH: Normal oral and palatal mucosa present THROAT: posterior oropharynx normal and uvula midline Neck/C-Spine: COMMON NORMALS: supple GENERAL: Yes normal visual inspection Resp: COMMON NORMALS: normal respiratory effort, No retractions, No use of accessory muscles and clear to auscultation bilaterally AUSCULTATION: clear to auscultation bilaterally Cardio: COMMON NORMALS: regular rate, regular rhythm, S1 normal heart sound present, S2 normal heart sound present, No gallops present (Cardio), No clicks present (Cardio), No murmurs present (Cardio) and Peripheral pulses 2+ throughout RATE: regular rate RHYTHM: regular rhythm HEART SOUNDS: S1 normal heart sound present and S2 normal heart sound present PERIPHERAL PULSES: Peripheral pulses 2+ throughout GI: COMMON NORMALS: Normal to inspection, nondistended, normoactive bowel sounds present, Soft to palpation, non-tender and no masses PALPATION: Yes Soft to palpation : COMMON NORMALS: Yes no CVA tenderness BLADDER/KIDNEY EXAM: Yes no CVA tenderness Back/Pelvis: COMMON NORMALS: no CVA tenderness LUMBAR SPINE/LOWER BACK: Yes pain with ROM, No lumbar spinal tenderness and Yes paraspinal muscle tenderness Lumbar paraspinal muscle tenderness: bilateral Bilateral lumbar paraspinal muscle tenderness: L4 and L5 Neuro: COMMON NORMALS: patient oriented x3 SENSORIUM/ORIENTATION: Yes alert GAIT: Yes Normal gait present Course Vital Signs: Vital signs: Vital Signs Pulse Rate 85 07/22/22 10:16 Respiratory Rate 14 07/22/22 10:16 Blood Pressure 106/63 07/22/22 10:16 Pulse Oximetry 100 07/22/22 10:16 Oxygen Delivery Me thod 07/22/22 10:16 MDM - Back Pain/Injury Medical Decision Making Patient is a 26-year-old female comes to the ED with lower back pain. Patient has symptoms started approximately 4 days ago after she was lifting some heavy furniture and was not using good lifting technique. Her pain is in her lower back and she gets some stinging type pain that radiates down her right leg. Denies cauda equina symptoms. Vitals are stable. She has no lumbar spinal tenderness. She does have some pain with range of motion of the lumbar spine and some paraspinal muscle tenderness bilaterally. Patient was given a dose of Norflex, Toradol and Decadron here in the ED. She was diagnosed with lumbar back pain with radiculopathy to right lower leg. She discharged home with a prescription for Celebrex, muscle relaxer and Medrol Dosepak. Return to ED precautions given. Follow-up with PCP within the next week for reevaluation. Patient understood and agreed with plan. Discharge Plan Discharge Patient Disposition: Home Clinical Impression: Lumbar back pain with radiculopathy affecting right lower extremity Condition: Stable Prescriptions: New Celebrex 100 mg capsule 100 mg PO BID PRN (Reason: pain) Qty: 20 0RF methocarbamol 750 mg tablet 750 mg PO Q8H PRN (Reason: Back muscle spasms and pain) Qty: 20 0RF Medrol (Noah) 4 mg tablets,dose pack See Rx Instructions .ROUTE .COMPLEX Qty: 21 0RF Rx Instructions: orally per package directions No Action prenat.vits,alexander,[id number] Tablet 1 tab PO DAILY acetaminophen [Tylenol Extra Strength] 500 mg Tablet 500 mg PO Q6H PRN (Reason: pain/fever) ibuprofen 800 mg Tablet 800 mg PO TID Qty: 45 0RF Discharge Orders: Discharge ED (Routine); Ordered 07/22/22 Ordered By: Jorge Hardy Referrals: Obinna Adamson MD [Primary Care Provider] - Discharge Diet: Regular Discharge Activity: Increase activity as tolerated Patient Instructions: Lumbar Radiculopathy (ED), Back Pain (ED) Activity Restrictions/Additional Instructions: Follow-up with medical provider as directed In the next 5 to 7 days for reevaluation. Take medications as prescribed. You can start taking the prescribed Medrol Dosepak tomorrow since she received a dose of steroids here in the ED today. Methocarbamol is a muscle relaxer and can cause some drowsiness so take at night before going to bed or use with caution during the day. Return to the ER or your medical provider if condition worsens. Please read and understand discharge instructions. Thank you for choosing [facility] for your healthcare needs today. Please realize this is an emergency room and that we are providing you with a medical screening exam and this may not be complete and all inclusive of all the testing and or work up that you may need to determine your ailment or severity of your illness. It is very important that you follow up as instructed or that you return to the Emergency Department should you have concerns or if your condition changes or worsens in any way. Stand Alone Forms: Work/School Release Coding Level of Care Code ED Research Dietitian for Ryan Fwd Exam Comprehensive
[2022-07-22] MEDS: dexamethasone 10 mg/mL INJ IM (10:50)
[2022-07-22] MEDS: orphenadrine 30 mg/mL Inj 2 mL 60 MG IM (10:51)
[2022-07-22] MEDS: ketorolac 60 mg/2 mL INJ IM (10:51)
== END 2022-07-22 11:10 | disposition home or self-care (01) ==
PROVIDERS: Emergency Provider Physician Assistant; PCP Family Medicine
DX: M54.16 Radiculopathy, lumbar region (principal); F17.210 Nicotine dependence, cigarettes, uncomplicated
CPT/HCPCS: 96372; 99284; J1100; J1885; J2360

== ENCOUNTER 2022-10-14 17:36 | Emergency (ER) | payer MEDICAID, SELFPAY ==
[2022-10-14 17:47] VITALS: PULSE 99; RESP 18; TEMP 36.6; O2SAT 100
--- NOTE | 2022-10-14 18:15 | XRR_ITS ---
PROCEDURE INFORMATION: Exam: XR Right Foot Exam date and time: 10/14/2022 6:36 PM Age: 26 years old Clinical indication: Injury or trauma; Other: Kicked a cabeinet; Blunt trauma; Toes; Right; Additional info: Kicked a cabinet. Pain and swelling in foot TECHNIQUE: Imaging protocol: Radiologic exam of the Right foot. Views: 3 or more views. COMPARISON: No relevant prior studies available. FINDINGS: Bones/joints: No definite acute fracture or dislocation noted. 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 In this region there is subtle lucency. Soft tissues: Normal. XR/XR foot RT min 3V* [id number] IMPRESSION: 1. No definite or displaced acute fracture. 2. 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 A subtle fracture through this area is conceivable but not definitive. Advise correlation.
--- NOTE | 2022-10-14 18:47 | W.ED.EXTPRO ---
HPI - Extremity Problem General: Chief complaint: Extremity Injury, Lower Stated complaint: right foot injury Time Seen by Provider: 10/14/22 18:25 History of Present Illness: Patient is a 26-year-old female who comes to the ED with right foot injury. Injury occurred last night. Patient says she was walking up the steps and the bottom part of her right great toe hit edge of step. She now has pain at the base of her right great toe that she rates a 7 out of 10. She is unable to bear weight due to pain. Denies any other injury. Associated symptoms: Deny chest pain, fever(s) or rash Review of Systems Const: Denies: fever(s), chills or fatigue Eyes: Denies: change in vision or eye discomfort ENMT: Denies: throat pain, odynophagia, nasal discharge or nasal congestion Card: Denies: chest pain, palpitations, edema, swelling of feet/ankles, dyspnea on exertion or orthopnea Resp: Denies: dyspnea, productive cough or non-productive cough GI: Denies: abdominal pain, nausea, vomiting, diarrhea, constipation or hematochezia : Denies: flank pain, dysuria or hematuria Musc: Reports: extremity pain (Right foot); Denies: neck pain, back pain or extremity swelling Skin/Breast: Denies: rash or new lesions Neuro: Denies: headache(s), numbness in extremities or weakness in extremities PFSH ED PFSH: Medical History No pertinent family history Surgical History No pertinent past surgical history Social History Smoking and tobacco status: current every day smoker cigarettes Years cigarettes smoked: 10 Quit status (tobacco): considering quitting Second hand smoke exposure: Yes Current gender identity: Female Female Reproductive History: Date of last menstrual period: 10/16/20 Physical Exam Const: COMMON NORMALS: patient oriented x3 and alert GENERAL APPEARANCE: cooperative HENMT: COMMON NORMALS: normocephalic HEAD & SCALP: normocephalic MOUTH: Normal oral and palatal mucosa present THROAT: posterior oropharynx normal and uvula midline Neck/C-Spine: COMMON NORMALS: supple GENERAL: Yes normal visual inspection Resp: COMMON NORMALS: normal respiratory effort, No retractions, No use of accessory muscles and clear to auscultation bilaterally AUSCULTATION: clear to auscultation bilaterally Cardio: COMMON NORMALS: regular rate, regular rhythm, S1 normal heart sound present, S2 normal heart sound present, No gallops present (Cardio), No clicks present (Cardio), No murmurs present (Cardio) and Peripheral pulses 2+ throughout RATE: regular rate RHYTHM: regular rhythm HEART SOUNDS: S1 normal heart sound present and S2 normal heart sound present PERIPHERAL PULSES: Peripheral pulses 2+ throughout GI: COMMON NORMALS: Normal to inspection, nondistended, normoactive bowel sounds present, Soft to palpation, non-tender and no masses PALPATION: Yes Soft to palpation : COMMON NORMALS: Yes no CVA tenderness BLADDER/KIDNEY EXAM: Yes no CVA tenderness Back/Pelvis: COMMON NORMALS: no CVA tenderness Extremity: NARRATIVE EXTREMITY EXAM: Right foot?great toe?neurovascular intact and cap refill under 2 seconds. Ecchymosis and swelling around base of right great toe. Tenderness at the base of right great toe. Limited range of motion in great toe due to pain. Rest of exam of foot is benign. Neuro: COMMON NORMALS: patient oriented x3 SENSORIUM/ORIENTATION: Yes alert GAIT: Yes Normal gait present Skin: GENERAL SKIN EXAM: dry skin Course Vital Signs: Vital signs: Vital Signs Temperature 97.8 F 10/14/22 17:47 Pulse Rate 60 10/14/22 20:07 Respiratory Rate 18 10/14/22 17:47 Blood Pressure 119/74 10/14/22 20:07 Pulse Oximetry 99 10/14/22 20:07 Oxygen Delivery Me thod 10/14/22 17:47 MDM - Extremity (Nontraumatic) Medical Decision Making Patient is a 26-year-old female who comes to the ED with right foot injury. Injury occurred last night. Patient says she was walking up the steps and the bottom part of her right great toe hit edge of step. She now has pain at the base of her right great toe that she rates a 7 out of 10. She is unable to bear weight due to pain. Denies any other injury. Vitals are stable. Right foot?great toe?neurovascular intact and cap refill under 2 seconds. Ecchymosis and swelling around base of right great toe. Tenderness at the base of right great toe. Limited range of motion in great toe due to pain. Rest of exam of foot is benign. X-ray of right foot shows no acute fractures or findings. Patient diagnosed with a contusion of toe of right foot. She was discharged home with some crutches, prescription for ibuprofen for pain and told to follow-up with her PCP in the next week for reevaluation. Return to ED precautions given. Patient understood and agreed with plan. Lab Data Radiology Impressions Foot X-Ray 10/14/22 18:15 IMPRESSION: 1. No definite or displaced acute fracture. 2. 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 A subtle fracture through this area is conceivable but not definitive. Advise correlation. Discharge Plan Discharge Patient Disposition: Home Clinical Impression: Contusion of toe of right foot Qualifiers: Encounter type: initial encounter Toe: great toe Damage to nail status: without damage Qualified Code(s): S90.111A - Contusion of right great toe without damage to nail, initial encounter Condition: Stable Prescriptions: New ibuprofen 600 mg tablet 600 mg PO Q8H PRN (Reason: pain) Qty: 20 0RF No Action prenat.vits,alexander,[id number] Tablet 1 tab PO DAILY acetaminophen [Tylenol Extra Strength] 500 mg Tablet 500 mg PO Q6H PRN (Reason: pain/fever) ibuprofen 800 mg Tablet 800 mg PO TID Qty: 45 0RF Celebrex 100 mg capsule 100 mg PO BID PRN (Reason: pain) Qty: 20 0RF methocarbamol 750 mg tablet 750 mg PO Q8H PRN (Reason: Back muscle spasms and pain) Qty: 20 0RF Medrol (Noah) 4 mg tablets,dose pack See Rx Instructions .ROUTE .COMPLEX Qty: 21 0RF Rx Instructions: orally per package directions Discharge Orders: Discharge ED (Routine); Ordered 10/14/22 Ordered By: Jorge Hardy Referrals: Obinna Adamson MD [Primary Care Provider] - Discharge Diet: Regular Discharge Activity: Increase activity as tolerated and Use walker/crutches as instructed Activity Restrictions/Additional Instructions: Follow-up with medical provider as directed in the next 5 to 7 days for reevaluation. Use crutches and limit weightbearing for the next 2 days to allow for healing. Rest, ice and elevate right foot to help with symptoms. Take medications as prescribed. Return to the ER or your medical provider if condition worsens. Please read and understand discharge instructions. Thank you for choosing [facility] for your healthcare needs today. Please realize this is an emergency room and that we are providing you with a medical screening exam and this may not be complete and all inclusive of all the testing and or work up that you may need to determine your ailment or severity of your illness. It is very important that you follow up as instructed or that you return to the Emergency Department should you have concerns or if your condition changes or worsens in any way. Coding Level of Care Code ED Returned Goods Receiving Clerk for Ryan Fwniesha Exam Comprehensive
[2022-10-14 20:07] VITALS: BP 119/74; PULSE 60; O2SAT 99
--- NOTE | 2022-10-14 20:07 | PC.NURSE ---
pt declined crutches stated she has them at home
== END 2022-10-14 20:08 | disposition home or self-care (01) ==
PROVIDERS: Emergency Provider Physician Assistant; PCP Family Medicine
DX: S90.111A Contusion of right great toe without damage to nail, initial encounter (principal); F17.210 Nicotine dependence, cigarettes, uncomplicated; W22.09XA Striking against other stationary object, initial encounter
CPT/HCPCS: 73630; 99283

== ENCOUNTER 2022-10-28 08:59 | Emergency (ER) | payer MEDICAID, SELFPAY ==
[2022-10-28 09:03] VITALS: BP 93/53; PULSE 75; RESP 16; TEMP 36.7; O2SAT 99
[2022-10-28 09:37] VITALS: BP 139/87; PULSE 119; RESP 23; O2SAT 98
[2022-10-28 09:38] LABS: Basophils % 0.5 %; Eosinophils # 0.1 10^3/uL (0.0-0.8); Eosinophils % 0.9 %; Hematocrit 36.6 % (37.0-47.0); Hemoglobin 11.8 g/dL (11.5-15.3); Lymphocytes # 1.6 10^3/uL (0.8-4.8); Lymphocytes % 20.1 %; Mean Corpuscular HGB Conc 32.2 g/dL (30.0-36.0); Mean Corpuscular Hemoglobin 28.9 pg (28.0-34.0); Mean Corpuscular Volume 89.5 fl (81-99); Mean Platelet Volume 9.2 fL (7.4-10.4); Monocytes # 0.7 10^3/uL (0.2-0.9); Monocytes % 8.5 %; Neutrophils # 5.42 10^3/uL (1.8-7.7); Neutrophils % 69.7 %; Nucleated Red Blood Cells % 0 %; Platelet Count 306 10^3/cmm (130-400); Red Blood Count 4.09 10^6/uL (4.1-5.3); Red Cell Distribution Width 12.3 % (12.1-15.1); White Blood Count 7.8 10^3/uL (4.0-10.0)
[2022-10-28 09:55] LABS: Alanine Aminotransferase 25 U/L (0-33); Albumin Level 4.2 g/dL (3.5-5.2); Alkaline Phosphatase 57 U/L (35-105); Anion Gap 17.1 (5-19); Aspartate Amino Transferase 23 U/L (0-32); Blood Urea Nitrogen 9 mg/dL (6-20); Calcium 8.9 mg/dL (8.5-10.5); Carbon Dioxide 20 mmol/L (22-29); Chloride 103 mmol/L (98-107); Globulin 2.9 g/dL (1.3-4.6); Glomerular Filtration Rate 196.1 mL/min (90-130); Glucose 97 mg/dL (65-115); Osmolality Calculated 281 mOsm/kg (285-295); Potassium 4.1 mmol/L (3.5-5.1); Sodium 136 mmol/L (136-145); Total Bilirubin 0.2 mg/dL (0.15-1.2); Total Protein 7.1 g/dL (6.6-8.7)
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
[2022-10-28 10:38] VITALS: PULSE 60; O2SAT 98
[2022-10-28 11:15] VITALS: PULSE 76; O2SAT 99
== END 2022-10-28 11:16 | disposition home or self-care (01) ==
PROVIDERS: Emergency Provider Physician Assistant; PCP Family Medicine
DX: Z04.1 Encounter for examination and observation following transport accident (principal); F17.210 Nicotine dependence, cigarettes, uncomplicated; V49.40XA Driver injured in collision with unspecified motor vehicles in traffic accident, initial encounter
CPT/HCPCS: 71045; 72100; 74018; 80053; 85025; 99284

== ENCOUNTER 2023-03-12 20:46 | Emergency (ER) | payer MEDICAID, SELFPAY ==
--- NOTE | 2023-03-12 20:48 | XRR_ITS ---
PROCEDURE INFORMATION: Exam: XR Right Foot Exam date and time: 03/12/2023 9:10 PM Age: 27 years old Clinical indication: Pain; Foot; Right; Additional info: Injury TECHNIQUE: Imaging protocol: Radiologic exam of the right foot. Views: 3 or more views. COMPARISON: CR (LOW EXM, ) 10/14/2022 6:36 PM FINDINGS: Bones/joints: Normal. Soft tissues: Normal. XR/XR foot RT min 3V* [id number] IMPRESSION: No acute findings.
--- NOTE | 2023-03-12 20:48 | XRR_ITS ---
PROCEDURE INFORMATION: Exam: XR Right Ankle Exam date and time: 03/12/2023 9:10 PM Age: 27 years old Clinical indication: Pain; Ankle; Right; Additional info: Injury, fall TECHNIQUE: Imaging protocol: Radiologic exam of the right ankle. Views: 3 or more views. COMPARISON: CR (LOW EXM, ) 10/14/2022 6:36 PM FINDINGS: Bones/joints: Normal. Soft tissues: Normal. XR/XR ankle RT min 3V* [id number] IMPRESSION: No acute findings.
[2023-03-12 21:01] VITALS: PULSE 88; RESP 17; TEMP 36.6; O2SAT 100; BMI 27.4
--- NOTE | 2023-03-12 21:18 | W.ED.EXTPRO ---
HPI - Extremity Problem General: Chief complaint: Extremity Injury, Lower Stated complaint: fall, right ankle injury Time Seen by Provider: 03/12/23 20:48 History of Present Illness: 27-year-old female comes in today for injury to the right ankle. Patient reports that she was stepping down a step between her living room and family room went to her right ankle turned on her. Patient reports pain to the lateral aspect of the ankle in the posterior aspect of the ankle. Minimal swelling is noted. No deformity or dislocation is noted. Associated symptoms: Deny chest pain, fever(s) or rash Review of Systems Const: Denies: fever(s) Card: Denies: chest pain Resp: Denies: dyspnea GI: Denies: nausea or vomiting : Denies: difficulty voiding Musc: Reports: extremity pain Skin/Breast: Denies: rash Neuro: Denies: numbness in extremities PFSH ED PFSH: Medical History No pertinent family history Surgical History No pertinent past surgical history Social History Smoking and tobacco status: current every day smoker cigarettes Years cigarettes smoked: 10 Quit status (tobacco): considering quitting Second hand smoke exposure: Yes Current gender identity: Female Female Reproductive History: Date of last menstrual period: 03/06/23 Physical Exam Const: COMMON NORMALS: alert HENMT: COMMON NORMALS: normocephalic HEAD & SCALP: normocephalic Neck/C-Spine: COMMON NORMALS: full ROM Resp: COMMON NORMALS: normal respiratory effort Cardio: COMMON NORMALS: regular rate RATE: regular rate Back/Pelvis: COMMON NORMALS: thoracic and lumbar spine normal to inspection Extremity: RIGHT LOWER EXTREMITY: Yes foot & digits (Minimal swelling, lateral and posterior tenderness) Right ankle: Yes inspection, Yes palpation and Yes ROM Neuro: SENSORIUM/ORIENTATION: Yes alert Skin: COMMON NORMALS: turgor normal GENERAL SKIN EXAM: turgor normal Course Vital Signs: Vital signs: Vital Signs Temperature 97.9 F 03/12/23 21:01 Pulse Rate 89 03/12/23 21:21 Respiratory Rate 18 03/12/23 21:21 Blood Pressure 114/64 03/12/23 21:21 Pulse Oximetry 99 03/12/23 21:21 Oxygen Delivery Me thod Room Air 03/12/23 21:21 MDM - Extremity (Nontraumatic) Medical Decision Making 27-year-old female comes in today for complaints of injury to the right ankle. On exam patient has some lateral tenderness and posterior tenderness to the right ankle. Minimal swelling is noted. Cap refill and sensation is intact. Differential diagnosis includes sprain, fracture, contusion. X-ray notes no fractures or dislocation. Reviewed exam with patient with recommendations for treatment of sprain. Patient reported understanding and agreed to plan. Discharge Plan Discharge Patient Disposition: Home Clinical Impression: Ankle sprain and strain Condition: Stable Prescriptions: No Action prenat.vits,alexander,[id number] Tablet 1 tab PO DAILY acetaminophen [Tylenol Extra Strength] 500 mg Tablet 500 mg PO Q6H PRN (Reason: pain/fever) ibuprofen 800 mg Tablet 800 mg PO TID Qty: 45 0RF Celebrex 100 mg capsule 100 mg PO BID PRN (Reason: pain) Qty: 20 0RF methocarbamol 750 mg tablet 750 mg PO Q8H PRN (Reason: Back muscle spasms and pain) Qty: 20 0RF Medrol (Noah) 4 mg tablets,dose pack See Rx Instructions .ROUTE .COMPLEX Qty: 21 0RF Rx Instructions: orally per package directions ibuprofen 600 mg tablet 600 mg PO Q8H PRN (Reason: pain) Qty: 20 0RF Discharge Orders: Discharge ED (Routine); Ordered 03/12/23 Ordered By: Vladimir Payne Referrals: Obinna Adamson MD [Primary Care Provider] - Discharge Diet: Usual diet Discharge Activity: Increase activity as tolerated Patient Instructions: Ankle Sprain (ED) Activity Restrictions/Additional Instructions: Activity as tolerated. Use acetaminophen and/or ibuprofen for pain and discomfort. Use ice packs and elevation for further pain control. Follow-up with primary care for further instructions. Return to ED for new concerns. Coding Level of Care Code ED Hardware Installation Coordinator for Ryan Marte
[2023-03-12 21:21] VITALS: BP 114/64; PULSE 89; RESP 18; O2SAT 99
[2023-03-12 22:04] VITALS: BP 112/70; PULSE 98; RESP 16; O2SAT 100
== END 2023-03-12 22:06 | disposition home or self-care (01) ==
PROVIDERS: Emergency Provider Nurse Practitioner Family; PCP Family Medicine
DX: S93.401A Sprain of unspecified ligament of right ankle, initial encounter (principal); S96.911A Strain of unspecified muscle and tendon at ankle and foot level, right foot, initial encounter; X50.1XXA Overexertion from prolonged static or awkward postures, initial encounter; Y93.01 Activity, walking, marching and hiking; Y92.008 Other place in unspecified non-institutional (private) residence as the place of occurrence of the external cause
CPT/HCPCS: 73610; 73630; 99283; E0114

== ENCOUNTER 2023-12-03 11:33 | Emergency (ER) | payer SELFPAY ==
[2023-12-03 11:50] VITALS: BP 120/76; PULSE 82; RESP 16; TEMP 36.7; O2SAT 100
--- NOTE | 2023-12-03 13:08 | ED_ITS ---
HPI - Back Pain/Injury General: Chief Complaint: Back Pain/Injury Stated Complaint: lower back pain, tingling/numbness in legs Time Seen by Provider: 12/03/23 13:07 Source: patient Mode of arrival: ambulatory Limitations: no limitations History of Present Illness: Patient is a nice 28-year-old female presents to ED today with complaint of lower back pain. 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 She states 2 days ago she woke up with lower back discomforts. She states she intermittently will have pain down her right leg and occasional paresthesias to her right thigh. Patient has been trying OTC analgesics without much relief. She does not complain of any saddle anesthesia. She is urinating and defecating normally. MD elicited complaint: back pain Onset (ago): day(s) Severity: severe Similar Symptoms Previously: Yes Quality: burning Location: lumbar spine and right lower back Radiation: right leg below the knee Exacerbating factors: movement Relieving factors: none Context: while lifting and turning/twisting Associated symptoms: Deny abdominal pain, chills, dysuria, fatigue, fever(s) or hematuria Work related injury: No Review of Systems Const: Denies: fever(s), chills, body aches, fatigue or malaise Card: Denies: chest pain Resp: Denies: dyspnea GI: Denies: abdominal pain : Denies: flank pain, dysuria or hematuria Musc: Reports: back pain and extremity pain (R leg pain); Denies: neck pain, extremity swelling, joint pain, joint swelling, joint redness, joint warmth or limited range of motion Skin/Breast: Denies: rash Neuro: Reports: sensory changes; Denies: headache(s), numbness in extremities or weakness in extremities PFS ED PFSH: Medical History No pertinent family history Surgical History No pertinent past surgical history Social History Smoking and tobacco/nicotine status: current every day tobacco/nicotine user cigarettes Years cigarettes smoked: 10 Quit status (tobacco/nicotine): considering quitting Second hand smoke exposure: Yes Current gender identity: Female Physical Exam Const: COMMON NORMALS: patient oriented x3, no limitations, alert and well nourished GENERAL APPEARANCE: cooperative ORIENTATION/CONSCIOUSNESS: Yes awake, Yes oriented to person, Yes oriented to place and Yes oriented to time : COMMON NORMALS: Yes no CVA tenderness BLADDER/KIDNEY EXAM: Yes no CVA tenderness Back/Pelvis: COMMON NORMALS: no CVA tenderness and straight leg raise negative bilaterally THORACIC SPINE/UPPER BACK: Yes normal to inspection, No thoracic spinal tenderness, No paraspinal muscle tenderness and No paraspinal muscle spasm LUMBAR SPINE/LOWER BACK: Yes lumbar spinal tenderness, Yes paraspinal muscle tenderness Lumbar paraspinal muscle tenderness: right, No paraspinal muscle spasm, No mass present and Yes straight leg raise negative bilaterally PELVIS: Yes buttocks normal and Yes sciatic notch tenderness SACROILIAC JOINTS: Yes SI joint(s) abnormal SI joint details: tender to palpation (R) SACRUM: no tenderness COCCYX: no tenderness Extremity: COMMON NORMALS: normal to inspection, capillary refill normal, no clubbing, cyanosis or edema, no calf tenderness and no pedal edema Neuro: COMMON NORMALS: patient oriented x3, moves all extremities, no focal motor deficits and no sensory deficits noted SENSORIUM/ORIENTATION: Yes alert, Yes oriented to person, Yes oriented to place and Yes oriented to time Skin: COMMON NORMALS: no rashes or lesions noted GENERAL SKIN EXAM: no rashes or lesions noted Course Vital Signs: Vital signs: Vital Signs Temperature 98.1 F 12/03/23 11:50 Pulse Rate 82 12/03/23 11:50 Respiratory Rate 16 12/03/23 11:50 Blood Pressure 120/76 12/03/23 11:50 Pulse Oximetry 100 12/03/23 11:50 Oxygen Delivery Me thod Room Air 12/03/23 11:50 MDM - Back Pain/Injury Medical Decision Making Patient has no acute neurologic deficits by history or physical examination. I do not feel any form of imaging at this time with overall warp changer. She can continue OTC anti-inflammatories. Will place her on steroids and muscle relaxers. Recommend follow-up with primary care in 1 to 2 weeks. Return ED precautions given. Differential Diagnosis Likely lumbar radiculopathy, sciatica and strain of lumbar region Medical Records I reviewed the patient's medical records. No radiology studies performed this visit Discharge Plan Discharge Patient Disposition: Home Clinical Impression: Sciatica Qualifiers: Laterality: right Qualified Code(s): M54.31 - Sciatica, right side Low back strain Qualifiers: Encounter type: initial encounter Qualified Code(s): S39.012A - Strain of muscle, fascia and tendon of lower back, initial encounter Condition: Stable Prescriptions: New methocarbamol 500 mg tablet 1,000 mg PO Q8H Qty: 30 0RF prednisone 10 mg tablet 10 mg PO DAILY 6 Days Qty: 20 0RF Rx Instructions: Take 5 tabs on day 1-2, 4 tabs on day 3, 3 tabs on day 4, 2 tabs on day 5, and 1 tab on day 6 Discontinued methylprednisolone [Medrol (Noah)] 4 mg tablets,dose pack See Rx Instructions .ROUTE .COMPLEX Qty: 21 0RF Rx Instructions: orally per package directions No Action prenat.vits,alexander,[id number] Tablet 1 tab PO DAILY promethazine-DM 6.25-15 mg/5 mL syrup 5 ml PO Q4H PRN (Reason: cough) Qty: 118 0RF Rx Instructions: Do not exceed more than 30ml/24hour period (6 doses) azithromycin 250 mg tablet See Rx Instructions PO .COMPLEX Qty: 6 0RF Rx Instructions: take 500 mg today (day 1), then 250 mg for 4 days (days 2-5) PO acetaminophen [Tylenol Extra Strength] 500 mg Tablet 500 mg PO Q6H PRN (Reason: pain/fever) ibuprofen 800 mg Tablet 800 mg PO TID Qty: 45 0RF Celebrex 100 mg capsule 100 mg PO BID PRN (Reason: pain) Qty: 20 0RF methocarbamol 750 mg tablet 750 mg PO Q8H PRN (Reason: Back muscle spasms and pain) Qty: 20 0RF ibuprofen 600 mg tablet 600 mg PO Q8H PRN (Reason: pain) Qty: 20 0RF Discharge Orders: Discharge ED (Routine); Ordered 12/03/23 Ordered By: Radha Byrne Referrals: Obinna Adamson MD [Primary Care Provider] - Activity Restrictions/Additional Instructions: You may continue taking an anti-inflammatory such as ibuprofen or naproxen in addition to the medications prescribed to you today. May also try ice and heat. Please follow-up with primary care in 1 to 2 weeks if symptoms do not begin to improve. Coding Level of Care Code ED Criminal Justice Social Worker for Ryan Marte
[2023-12-03] MEDS: ketorolac 60 mg/2 mL INJ IM (13:25)
[2023-12-03] MEDS: dexamethasone 10 mg/mL INJ IM (13:27)
== END 2023-12-03 14:01 | disposition home or self-care (01) ==
PROVIDERS: Emergency Provider Physician Assistant; PCP Family Medicine
DX: M54.31 Sciatica, right side (principal); S39.012A Strain of muscle, fascia and tendon of lower back, initial encounter; F17.210 Nicotine dependence, cigarettes, uncomplicated; X50.0XXA Overexertion from strenuous movement or load, initial encounter
CPT/HCPCS: 96372; 99284; J1100; J1885

== ENCOUNTER → 2025-02-27 18:48 | Outpatient (BNVA) | payer OTHER, SELFPAY | PROVIDERS: PCP Family Medicine; Visit Provider Nurse Practitioner | DX: R39.9 Unspecified symptoms and signs involving the genitourinary system (principal) | CPT/HCPCS: 81000; 87086 ==

== ENCOUNTER 2025-03-01 09:18 | Emergency (ER) | payer OTHER, SELFPAY ==
[2025-03-01 09:25] VITALS: BP 123/79; PULSE 83; TEMP 36.6; O2SAT 99; BMI 37.5
[2025-03-01 09:51] LABS: Bilirubin Urine Negative (Negative); Blood Urine Negative (Negative); Glucose Urine UA Negative (Normal); Ketones Urine Negative (Negative); Leukocyte Esterase Urine Negative (Negative); Nitrate Urine Negative (Negative); Protein Urine Negative (Negative); Specific Gravity, Urine 1.015 (1.005-1.030); Urine Appearance Clear (CLEAR); Urine Color Yellow (Yellow); Urobilinogen Urine 0.2 mg/dL (Negative); pH Urine 5.5 (5-7)
[2025-03-01 09:56] LABS: Add Urine Microscopic? YES; Bacteria Urine None Seen /hpf; Hyaline Casts Urine 0-4 /lpf; RBC Urine 0-2 /hpf (0-2); Squamous Epithelial Cell Urine 0-5 /hpf (0-5); WBC Urine 0-5 /hpf (0-5)
--- NOTE | 2025-03-01 09:58 | CT_ITS ---
WS: [id number] CT ABDOMEN PELVIS TECHNIQUE: Contrast-enhanced CT of the abdomen and pelvis with coronal and sagittal reformatted images. CLINICAL INFORMATION: abdominal pain, nausea, back pain, UTI like symptoms COMPARISON: 2019 DLP: 977.[address] scans at [facility] use at least one of these dose optimization techniques: automated exposure control; mA and/or kV adjustment per patient size (includes targeted exams where dose is matched to clinical indication); or iterative reconstruction. FINDINGS: Normal bilateral renal parenchymal enhancement. No hydronephrosis. No obstructing renal or ureteral calculi. Fatty liver. Cholecystectomy. Normal portal vein and splenic vein. Normal GE junction. Normal spleen. Small splenule. Lung bases are well aerated. Adrenal glands are normal. Normal pancreatic pa renchymal enhancement. Normal sigmoid colon. No evidence of small or large bowel obstruction. Normal appendix in the RIGHT lower quadrant. CT/CT abdomen pelvis w con* [id number] IMPRESSION: 1. RIGHT ovarian cyst measuring 3.5 x 3.1 cm 2. No hydronephrosis in either kidney. Normal renal parenchymal enhancement. 3. No other acute findings.
--- NOTE | 2025-03-01 09:58 | ED_ITS ---
HPI - Abdominal Pain 2 General: Chief Complaint: Urogenital-Female Stated Complaint: lower abd/low back pain Time Seen by Provider: 03/01/25 09:20 Source: patient Mode of arrival: ambulatory Limitations: no limitations History of Present Illness: Patient is a 29-year-old female presents to ED today with complaint of UTI-like symptoms, abdominal pain, and back pain. Patient states she began having burning with urination as well as urinary frequency and urgency several days ago. She was subsequently seen at a walk-in clinic 2 days ago and diagnosed with a UTI and placed on Macrobid. Patient states she has had approximately 2-3 doses of this medication and is not improving. She feels like her symptoms are worsening and now she is having diffuse abdominal pain radiating into her back. Subjective fevers and chills. She feels nauseous but has not had any episodes of vomiting. Is reporting normal bowel movements. Denies chance of as she has had a salpingectomy. She is not having any vaginal discharge or vaginal odor. No concerns for STDs. MD elicited complaint: abdominal pain Pertinent past history: none Onset (ago): day(s) Pain Consistency: constant Location: Diffuse and Suprapubic Severity: moderate Radiation: none Migration to: L flank, R flank and bilateral flank Exacerbating factors: nothing Relieving factors: nothing Associated Symptoms: Reports chills, dysuria, fever(s) (subjective last night) and nausea; Denies change in bowel habits, diarrhea, heartburn, hematochezia, hematuria, melena, syncope and vomiting Related Data Previous Rx's ?Medication ?Instructions ?Recorded nitrofurantoin 100 mg PO Q12H 7 days #14 ca ps 02/27/25 monohydrate/macrocrystals 100 mg capsule (Macrobid) tramadol 50 mg tablet 50 mg PO Q6H PRN pain #14 ta bs 03/01/25 Allergies Allergy/AdvReac Type Severity Reaction Status Date / Time Penicillins Allergy Severe ALGY-Anaphy Verified 03/01/25 09:30 laxis Review of Systems 2 Const: Reports: fever(s) (subjective last night) and chills Eyes: Denies: change in vision or blurry vision Card: Denies: chest pain, palpitations, irregular heart rhythm, lightheadedness, syncope or dyspnea on exertion Resp: Denies: dyspnea, productive cough or pain on inspiration GI: Reports: abdominal pain and nausea; Denies: vomiting, heartburn, diarrhea, change in bowel habits, hematochezia or melena : Reports: dysuria and urinary frequency; Denies: flank pain, hematuria, vaginal odor or vaginal discharge Musc: Denies: neck pain, back pain, extremity pain, extremity swelling or joint pain Skin/Breast: Denies: rash Neuro: Denies: headache(s), numbness in extremities, weakness in extremities or sensory changes PFSH ED 2 PFSH: Medical History No pertinent family history Surgical History No pertinent past surgical history Social History Smoking and tobacco/nicotine status: current every day tobacco/nicotine user cigarettes Years cigarettes smoked: 10 Quit status (tobacco/nicotine): considering quitting Second hand smoke exposure: Yes Current gender identity: Female Physical Exam 2 Const: COMMON NORMALS: no acute distress, patient oriented x3, no limitations, alert and well nourished GENERAL APPEARANCE: cooperative NUTRITIONAL APPEARANCE: overweight HENMT: COMMON NORMALS: normocephalic and atraumatic HEAD & SCALP: n ormocephalic and atraumatic Eye: COMMON NORMALS: no scleral icterus Neck/C-Spine: COMMON NORMALS: full ROM, no lymphadenopathy, supple and no meningeal signs Chest: COMMONS NORMALS: normal inspection of the chest Resp: COMMON NORMALS: normal respiratory effort and clear to auscultation bilaterally AUSCULTATION: clear to auscultation bilaterally Cardio: COMMON NORMALS: regular rate and regular rhythm RATE: regular rate RHYTHM: regular rhythm GI: COMMON NORMALS: Normal to inspection, nondistended, normoactive bowel sounds present, Soft to palpation, No hepatosplenomegaly present and no masses INSPECTION: Yes normal to inspection AUSCULTATION: Yes normoactive bowel sounds PALPATION: Yes Soft to palpation, Yes Tenderness to palpation present (GI) (diffusely tender), No Guarding due to palpation present (GI), No Rigid due to palpation and Yes No hepatosplenomegaly present : COMMON NORMALS: Yes no CVA tenderness BLADDER/KIDNEY EXAM: Yes no CVA tenderness Back/Pelvis: COMMON NORMALS: no CVA tenderness, thoracic and lumbar spine normal to inspection, no thoracic nor lumbar tenderness, thoraco-lumbar ROM normal and straight leg raise negative bilaterally THORACIC SPINE/UPPER BACK: Yes paraspinal muscle tenderness LUMBAR SPINE/LOWER BACK: Yes paraspinal muscle tenderness PELVIS: Yes buttocks normal and No sciatic notch tenderness SACRUM: no tenderness COCCYX: no tenderness Extremity: COMMON NORMALS: normal to inspection GENERAL: Yes normal exam except as noted Neuro: COMMON NORMALS: patient oriented x3, moves all extremities, no focal motor deficits, no sensory deficits noted and gait normal S ENSORIUM/ORIENTATION: Yes alert MENINGEAL SIGNS: Yes no meningeal signs Skin: COMMON NORMALS: no rashes or lesions noted GENERAL SKIN EXAM: no rashes or lesions noted Course 2 Vital Signs: Vital signs: Vital Signs Temperature 97.9 F 03/01/25 09:25 Pulse Rate 67 03/01/25 10:30 Respiratory Rate 17 03/01/25 10:40 Blood Pressure 103/58 03/01/25 10:30 Pulse Oximetry 100 03/01/25 10:40 Oxygen Delivery Me thod Room Air 03/01/25 10:30 MDM - Abdominal Pain Medical Decision Making Patient's vital signs are stable. Her blood work is unremarkable. Urinalysis does not look suspicious for acute cystitis. She is currently on Macrobid. Her urine culture is pending. Recommend she continue this medication for now. CT imaging showing a 3.5 cm right ovarian cyst. I do not any clinical concern for torsion. Will give her something she can use for significant discomfort. Recommend follow-up with gynecology. Will place referral here. She states she does have gynecology in [place] but they are often booked out for months. She can otherwise follow-up with primary care in the meantime. Return precautions discussed. Medical Records I reviewed the patient's medical records. Lab Data I reviewed the patient's lab results. 03/01/25 09:55 03/01/25 09:55 Labs/Radiology: Radiology Impressions Abdomen/Pelvis CT 03/01/25 09:58 IMPRESSION: 1. RIGHT ovarian cyst measuring 3.5 x 3.1 cm 2. No hydronephrosis in either kidney. Normal renal parenchymal enhancement. 3. No other acute findings. Laboratory Results WBC 9.52 10^3/uL (3.29-11.43) 03/01/25 09:55 RBC 4.65 10^6/uL (3.85-5.65) 03/01/25 09:55 Hgb 13.00 g/dL (11.27-16.99) 03/01/25 09:55 Hct 40.3 % (36-47) 03/01/25 09:55 MCV 86.7 fl (85-98) 03/01/25 09:55 MCH 28.0 pg (27-33) 03/01/25 09:55 MCHC 32.3 g/dL (30-55) 03/01/25 09:55 RDW 13.0 % (12.1-15.1) 03/01/25 09:55 Plt Count 386 10^3/cmm (157-399) 03/01/25 09:55 MPV 10.1 fL (7.4-10.4) 03/01/25 09:55 Neut % (Auto) 59.4 % 03/01/25 09:55 Lymph % (Auto) 28.2 % 03/01/25 09:55 [place] % (Auto) 9.9 % 03/01/25 09:55 Eos % (Auto) 1.9 % 03/01/25 09:55 Baso % (Auto) 0.4 % 03/01/25 09:55 Neut # (Auto) 5.66 10^3/uL (1.8-7.7) 03/01/25 09:55 Lymph # (Auto) 2.7 10^3/uL (0.8-4.8) 03/01/25 09:55 [place] # (Auto) 0.9 10^3/uL (0.2-0.9) 03/01/25 09:55 Eos # (Auto) 0.2 10^3/uL (0.0-0.8) 03/01/25 09:55 Baso # (Auto) 0.0 10^3/uL (0.0-0.1) 03/01/25 09:55 Nucleated RBC % (auto) 0 % 03/01/25 09:55 Nucleated RBCs # 0.0 /100WBC 03/01/25 09:55 Sodium 137 mmol/L (136-145) 03/01/25 09:55 Potassium 4.5 mmol/L (3.5-5.1) 03/01/25 09:55 Chloride 105 mmol/L (98-107) 03/01/25 09:55 Carbon Dioxide 20 mmol/L (22-29) L 03/01/25 09:55 Anion Gap 16.5 (5-19) 03/01/25 09:55 BUN 8 mg/dL (6-20) 03/01/25 09:55 Creatinine 0.5 mg/dL (0.5-0.9) 03/01/25 09:55 GFR Calculation 148.0 mL/min (90-130) H 03/01/25 09:55 Glucose 91 mg/dL (65-115) 03/01/25 09:55 Calculated Osmolality 282 mOsm/kg (285-295) L 03/01/25 09:55 Calcium 9.3 mg/dL (8.5-10.5) 03/01/25 09:55 Total Bilirubin 0.2 mg/dL (0.15-1.2) 03/01/25 09:55 AST 18 U/L (0-32) 03/01/25 09:55 ALT 24 U/L (0-33) 03/01/25 09:55 Alkaline Phosphatase 96 U/L (35-105) 03/01/25 09:55 Total Protein 8.0 g/dL (6.6-8.7) 03/01/25 09:55 Albumin 4.2 g/dL (3.5-5.2) 03/01/25 09:55 Globulin 3.8 g/dL (1.3-4.6) 03/01/25 09:55 HCG, Qual Negative (Negative) 03/01/25 09:55 Urine Color Yellow (Yellow) 03/01/25 09:31 Urine Appearance Clear (CLEAR) 03/01/25 09:31 Urine pH 5.5 (5-7) 03/01/25 09:31 Ur Specific [place] 1.015 (1.005-1.030) 03/01/25 09:31 Urine Protein Negative (Negative) 03/01/25 09:31 Urine Glucose (UA) Negative (Normal) 03/01/25 09:31 Urine Ketones Negative (Negative) 03/01/25 09:31 Urine Blood Negative (Negative) 06/03/25 09:31 Urine Nitrate Negative (Negative) 03/01/25 09:31 Urine Bilirubin Negative (Negative) 03/01/25 09:31 Urine Urobilinogen 0.2 mg/dL (Negative) 03/01/25 09:31 Ur Leukocyte Esterase Negative (Negative) 03/01/25 09:31 Urine RBC 0-2 /hpf (0-2) 03/01/25 09:31 Urine WBC 0-5 /hpf (0-5) 03/01/25 09:31 Ur Squamous Epith Cells 0-5 /hpf (0-5) 03/01/25 09:31 Amorphous Sediment Not Reportable 03/01/25 09:31 Urine Bacteria None seen /hpf (NONE) 03/01/25 09:31 Hyaline Casts 0-4 /lpf H 03/01/25 09:31 All radiology interpretation(s) finalized by discharge Discharge Plan Discharge Patient Disposition: Home Clinical Impression: Cyst of right ovary Condition: Stable Prescriptions: New tramadol 50 mg tablet 50 mg PO Q6H PRN (Reason: pain) Qty: 14 0RF No Action nitrofurantoin monohyd/m-cryst [Macrobid] 100 mg capsule 100 mg PO Q12H 7 Days Qty: 14 0RF Rx Instructions: must administer with a meal/food Discharge Orders: Discharge ED (Routine); Ordered 03/01/25 Ordered By: Radha Byrne Patient Instructions: Ovarian Cyst (ED), Opioid Safety, Pain Management Activity Restrictions/Additional Instructions: As we discussed, your blood work here was unremarkable. Urine analysis did not show any evidence of infection. You currently have a urine culture pending. I would continue your antimicrobial therapy until this returns. Your CT scan did show a 3.5 cm right ovarian cyst. You may take [id number] analgesics such as Tylenol and/or ibuprofen as needed for discomfort as well as using a heating pad. You have been provided stronger pain medications to use sparingly as needed. I have placed a case management referral for gynecology. You may also contact your manufactured buildings repairer in [place] to see if they have a sooner appointment for follow-up. You may return to the emergency department at anytime for worsening or severe pain, fevers, lightheadedness/dizziness, generally feeling worse or unwell, or any other concerns you may have. Print Language: Belarusian Coding Level of Care Code ED Graduate Advisor for Ryan Marte
[2025-03-01 10:27] LABS: Basophils % 0.4 %; Eosinophils # 0.2 10^3/uL (0.0-0.8); Eosinophils % 1.9 %; Hematocrit 40.3 % (36-47); Lymphocytes # 2.7 10^3/uL (0.8-4.8); Lymphocytes % 28.2 %; Mean Corpuscular HGB Conc 32.3 g/dL (30-55); Mean Corpuscular Volume 86.7 fl (85-98); Mean Platelet Volume 10.1 fL (7.4-10.4); Monocytes # 0.9 10^3/uL (0.2-0.9); Monocytes % 9.9 %; Neutrophils # 5.66 10^3/uL (1.8-7.7); Neutrophils % 59.4 %; Nucleated Red Blood Cells % 0 %; Platelet Count 386 10^3/cmm (157-399); Red Blood Count 4.65 10^6/uL (3.85-5.65); White Blood Count 9.52 10^3/uL (3.29-11.43)
[2025-03-01 10:30] VITALS: BP 103/58; PULSE 67; O2SAT 100
[2025-03-01 10:36] LABS: HCG, Serum Qual Negative (Negative)
[2025-03-01 10:40] VITALS: RESP 17; O2SAT 100
[2025-03-01 10:40] LABS: Alanine Aminotransferase 24 U/L (0-33); Albumin Level 4.2 g/dL (3.5-5.2); Alkaline Phosphatase 96 U/L (35-105); Anion Gap 16.5 (5-19); Aspartate Amino Transferase 18 U/L (0-32); Blood Urea Nitrogen 8 mg/dL (6-20); Calcium 9.3 mg/dL (8.5-10.5); Carbon Dioxide 20 mmol/L (22-29); Chloride 105 mmol/L (98-107); Creatinine Clr Calc Pharmacy 200.6506; Globulin 3.8 g/dL (1.3-4.6); Glucose 91 mg/dL (65-115); Osmolality Calculated 282 mOsm/kg (285-295); Potassium 4.5 mmol/L (3.5-5.1); Sodium 137 mmol/L (136-145); Total Bilirubin 0.2 mg/dL (0.15-1.2)
[2025-03-01] MEDS: morphine 4 mg/mL SDV 1 mL IVP (10:40)
[2025-03-01] MEDS: ondansetron 2 mg/ML SDV 2 mL 4 MG IVP (10:41)
[2025-03-01] MEDS: iohexol 350 mg/mL 500 mL Btl (per mL) IV (10:57)
[2025-03-01 11:47] VITALS: BP 110/73; PULSE 70; O2SAT 99
--- NOTE | 2025-03-02 07:31 | DCPLANNER ---
messaged [facility] for er f/u
== END 2025-03-01 11:49 | disposition home or self-care (01) ==
PROVIDERS: Emergency Provider Physician Assistant
DX: N83.201 Unspecified ovarian cyst, right side (principal); F17.210 Nicotine dependence, cigarettes, uncomplicated
CPT/HCPCS: 36415; 74177; 80053; 81001; 84703; 85025; 96374; 96375; 99285; J2270; J2405